=== PATIENT | male | born 1985 | race Caucasian/White ===

== ENCOUNTER → 2023-11-30 12:13 | Outpatient (CLI) | payer OTHER, SELFPAY ==
--- NOTE | 2023-11-30 12:16 | DI.ECHO.S_ITS ---
[place] : : [address] : : [place] : : [id number] : : Phone: [phone] Echocardiogram Report + + :Name: SHERLEY VIZCAINO Study Date: 11/30/2023 Height: 69 in : :[facility] ReadingLocation: Weight: 185 lb : : Gender: Male BSA: 2.0 m2 : :: 1985 Age: 38 yrs BP: 137/88 mmHg: :Reason For Study: CARDIAC MURMUR : :Ordering Physician: ADRIAN ESCOBEDO Performed By: Claus Flores : :Referring: ADRIAN ESCOBEDO : + + Interpretation Summary 1. The left ventricular contractility is normal. Estimated ejection fraction is greater than 55% with no segmental wall motion abnormalities. No diastolic dysfunction is appreciated. No left ventricle hypertrophy is noted. 2. The right ventricular contractility is normal. 3. All cardiac chambers are of normal size. 4. No significant valvular abnormalities are noted. 5. No obvious intracardiac masses nor thrombi present. 6. No obvious intracardiac shunts present. 7. No hemodynamically significant pericardial effusion present. Conclusion: Normal echocardiogram Procedure: A two-dimensional transthoracic echocardiogram with color flow and Doppler was performed. The study quality was technically adequate. There is no prior echocardiogram noted for this patient. The patient was in normal sinus rhythm during the exam. The heart rate ranged between 63-84 bpm during the study. Left Ventricle: The left ventricle is normal in size and wall thickness. The ejection fraction is estimated to be 60-65%. Right Ventricle: The right ventricle is normal size. The right ventricular systolic function is normal. Atria: The left atrial size is normal. Right atrial size is normal. The interatrial septum grossly appears intact with no obvious evidence for an atrial septal defect. Mitral Valve: The mitral valve is normal in structure and function. There is no mitral valve stenosis. There has been no significant change since the previous study. Aortic Valve: The aortic valve is trileaflet. There is no aortic valve stenosis. No aortic regurgitation is present. Tricuspid Valve: The tricuspid valve is normal in structure and function. There is no tricuspid stenosis. There is a trace or physiologic amount of tricuspid regurgitation. Pulmonic Valve: The pulmonic valve is not well visualized. There is no pulmonic valvular stenosis. There is trace pulmonic regurgitation. Great Vessels: The aortic root is normal size. The dimensions of the ascending aorta are normal. The IVC is of normal diameter and collapses greater than 50% with a sniff. This suggests a low right atrial pressure of 3 mm Hg. Pericardium/ Pleura There is no pericardial effusion. There is no pleural effusion. MMode/2D Measurements & Calculations LVIDd: 4.5 cm LVOT diam: 2.4 cm LVIDs: 3.1 cm Ao root diam: 3.3 cm FS: 31.8 % asc Aorta Diam: 2.9 cm IVSd: 0.98 cm Ao Arch Diam (Prox Trans): 2.3 cm LVPWd: 0.99 cm LV ye. diameter/BSA (cm/m^2): 2.3 LV sys. diameter/BSA (cm/m^2): 1.6 LA A2 area: 16.9 cm2 RA long axis: 4.8 cm LA A4 area: 14.3 cm2 RA area: 13.8 cm2 LA length (vol): 4.4 cm RA vol: 33.9 ml LA vol: 46.5 ml RA : 17.0 ml/m2 LA vol index: 23.2 ml/m2 IVC diam: 1.8 cm RVD1 (basal): 3.4 cm RVD2 (mid): 2.9 cm TAPSE: 2.4 cm Doppler Measurements & Calculations Ao V2 max: 127.1 cm/sec LVOT Max Jose: 97.6 cm/sec Ao V2 mean: 96.6 cm/sec LV V1 max P.8 mmHg Ao max P.5 mmHg LV V1 VTI: 21.0 cm Ao mean P.1 mmHg JESSICA(I,D): 3.4 cm2 Ao V2 VTI: 27.6 cm JESSICA(V,D): 3.4 cm2 sev ratio: 0.76 JESSICA indexed to BSA (cm^2/m^2): 1.7 MV E max jose: 78.2 cm/sec PA V2 max: 113.6 cm/sec MV A max jose: 55.0 cm/sec PA V2 mean: 72.3 cm/sec MV E/A: 1.4 PA mean P.5 mmHg Med Peak E' Jose: 11.5 cm/sec PA pr(Accel): 17.3 mmHg E/E' med: 6.8 Lat Peak E' Jose: 20.9 cm/sec E/E' lat: 3.7 E/e' average: 5.3 MV dec time: 0.20 sec SV(LVOT): 93.9 ml Reading Physician:
== END ==
PROVIDERS: Referring Provider Internal Medicine; Visit Provider Internal Medicine
DX: R01.1 Cardiac murmur, unspecified (principal)
CPT/HCPCS: 93306